=== PATIENT | female | born 1965 | race Caucasian/White ===

== ENCOUNTER 2020-12-30 10:04 | Emergency (ER) | payer OTHER ==
[~2020-12-30 10:04] MED LIST: DECARA50000 UNIT PO; FOLIC ACID 1 MG1 MG PO; HUMIRA40 MG/0.8 SQ; LOPRESSOR50 MG PO; METHOTREXATE T2.5 MG PO; PREDNISONE10 MG PO; PRINIVIL10 MG PO; PROVENTIL HFA6.7 GM INH
[2020-12-30 10:52] LABS: HEMOGLOBIN 13.3 gm/dl (12.3-15.3); RED BLOOD COUNT 4.69 M/UL (4.00-5.10); WHITE BLOOD COUNT 10.9 K/UL (4.5-11.0)
[2020-12-30 11:13] LABS: BUN/CREATININE RATIO 18 (0-10)
== END 2020-12-30 12:35 | disposition home or self-care (01) ==
LOC: ER1 10:04
PROVIDERS: Family Medicine
DX: S29.011A Strain of muscle and tendon of front wall of thorax, initial encounter (principal); J98.11 Atelectasis; I25.10 Atherosclerotic heart disease of native coronary artery without angina pectoris; I10 Essential (primary) hypertension; J45.909 Unspecified asthma, uncomplicated; I25.2 Old myocardial infarction; M06.9 Rheumatoid arthritis, unspecified; Z79.01 Long term (current) use of anticoagulants; Z79.899 Other long term (current) drug therapy; Z88.8 Allergy status to other drugs, medicaments and biological substances; X58.XXXA Exposure to other specified factors, initial encounter
CPT/HCPCS: 71045; 80053; 82550; 82553; 83874; 84484; 85025; 93005; 96374; 99285; J1885

== ENCOUNTER → 2021-01-07 | Outpatient (CLI) | payer OTHER ==
[~2021-01-07] MED LIST changes: +LODINE CAP 300300 MG PO; +NORFLEX 100 MG100 MG PO
== END ==
LOC: KOH-I 16:11
DX: J45.901 Unspecified asthma with (acute) exacerbation (principal); R06.02 Shortness of breath
CPT/HCPCS: 71046

== ENCOUNTER 2021-02-06 22:41 | Emergency (ER) | payer OTHER ==
[~2021-02-06 22:41] MED LIST changes: -LODINE CAP 300300 MG PO; -NORFLEX 100 MG100 MG PO
[2021-02-07] MEDS ORDERED: NORFLEX 100 MG100 MG PO (00:53)
[2021-02-07] MEDS ORDERED: LODINE CAP 300300 MG PO (00:53)
== END 2021-02-07 00:56 | disposition home or self-care (01) ==
LOC: ER1 22:41
DX: S16.1XXA Strain of muscle, fascia and tendon at neck level, initial encounter (principal); S39.012A Strain of muscle, fascia and tendon of lower back, initial encounter; S29.012A Strain of muscle and tendon of back wall of thorax, initial encounter; J45.909 Unspecified asthma, uncomplicated; I10 Essential (primary) hypertension; Z88.1 Allergy status to other antibiotic agents; V49.40XA Driver injured in collision with unspecified motor vehicles in traffic accident, initial encounter; Y92.410 Unspecified street and highway as the place of occurrence of the external cause
CPT/HCPCS: 72125; 72128; 72131; 99283

== ENCOUNTER 2021-08-04 11:52 | Emergency (ER) | payer OTHER ==
[~2021-08-04 11:52] MED LIST changes: +LODINE CAP 300300 MG PO; +NORFLEX 100 MG100 MG PO
[2021-08-04] MEDS ORDERED: ENDOCET 5-3251 EACH PO (13:20)
== END 2021-08-04 13:49 | disposition home or self-care (01) ==
LOC: ER1 11:52
DX: S22.32XA Fracture of one rib, left side, initial encounter for closed fracture (principal); S22.31XA Fracture of one rib, right side, initial encounter for closed fracture; V49.40XA Driver injured in collision with unspecified motor vehicles in traffic accident, initial encounter; Y92.410 Unspecified street and highway as the place of occurrence of the external cause
CPT/HCPCS: 71045; 99283